=== PATIENT | male | born 1975 | race African-American/Black ===

== ENCOUNTER 2016-09-04 14:40 | Emergency (ER) | payer BC, OTHER ==
[~2016-09-04] VITALS: Ht 182.9 cm; Wt 175.0 kg
[~2016-09-04 14:40] MED LIST: CIPR500T4 PO; HYDR-3533 PO; IBUP-238 PO; IBUP600 PO; LISI-363 PO
[2016-09-04 14:53] VITALS: BP 175/88; PULSE 78; RESP 16; TEMP 98; O2SAT 94
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
[2016-09-04 17:42] LABS: AUTOMATED NEUTROPHIL # 9.1 TH/MM3 (1.8-7.7); BASOPHIL # 0.1 TH/MM3 (0-0.2); BASOPHIL % 0.7 % (0.0-2.0); EOSINOPHIL # 0.3 TH/MM3 (0-0.4); EOSINOPHIL % 1.9 % (0.0-4.0); HEMATOCRIT 37.5 % (39.0-51.0); HEMO FLAGS DIFF FINAL; LYMPH % 23.9 % (9.0-44.0); LYMPHOCYTE # 3.3 TH/MM3 (1.0-4.8); MEAN CELL VOLUME 88.8 FL (80.0-100.0); MEAN CORPUSCULAR HEMOGLOBIN 29.2 PG (27.0-34.0); MEAN CORPUSCULAR HGB CONC 32.9 % (32.0-36.0); MONO % 7.3 % (0.0-8.0); NEUT % 66.2 % (16.0-70.0); PLATELET COUNT 291 TH/MM3 (150-450); RED BLOOD COUNT 4.23 MIL/MM3 (4.50-5.90); RED CELL DISTRIBUTION WIDTH 13.1 % (11.6-17.2); WHITE BLOOD COUNT 13.7 TH/MM3 (4.0-11.0)
[2016-09-04 17:48] LABS: BLOOD, URINE LARGE (NEG); COMMENT (UR) CULT NOT INDICATED; CULTURE IF INDICATED CULT NOT INDICATED; GLUCOSE,URINE NEG (NEG); KETONE, URINE NEG (NEG); MUCUS URINE FEW /lpf (OCC); NITRITE,URINE NEG (NEG); SQUAMOUS EPITHELIAL CELL URINE <1 /hpf (0-5); URINE COLOR YELLOW (YELLW/STRAW)
[2016-09-04 18:04] LABS: ANION GAP 5 MEQ/L (5-15); BICARBONATE 29.3 MEQ/L (21.0-32.0); BLOOD UREA NITROGEN 13 MG/DL (7-18); CHLORIDE 106 MEQ/L (98-107); GLOMERULAR FILTRATION RATE 123 ML/MIN (>89); MAGNESIUM 1.8 MG/DL (1.5-2.5); POTASSIUM 3.3 MEQ/L (3.5-5.1); SODIUM (NA) 140 MEQ/L (136-145)
[2016-09-04 18:06] LABS: ALT (GPT) 21 U/L (12-78)
[2016-09-04 18:16] LABS: ALKALINE PHOSPHATASE 69 U/L (45-117); AST (GOT) 19 U/L (15-37); TOTAL BILIRUBIN ADULT 0.6 MG/DL (0.2-1.0)
== END 2016-09-04 19:01 | disposition home or self-care (01) ==
LOC: NEPD 14:40
DX: R42 Dizziness and giddiness (principal); R31.9 Hematuria, unspecified; R11.0 Nausea; I10 Essential (primary) hypertension; M13.862 Other specified arthritis, left knee; Z87.442 Personal history of urinary calculi; Z88.5 Allergy status to narcotic agent
CPT/HCPCS: 80053; 81001; 83735; 84443; 85025; 99283

== ENCOUNTER 2016-09-09 22:16 | Emergency (ER) | payer OTHER ==
[2016-09-09 22:19] VITALS: BP 191/116; PULSE 104; RESP 16; TEMP 99.3; O2SAT 97
[2016-09-10] MEDS ORDERED: SODIUM CHLORID 0.9% 500 ML INJ 500 ML IV ONE
[2016-09-10 00:13] VITALS: BP 198/111; PULSE 96; RESP 20; O2SAT 96
--- NOTE | 2016-09-10 01:10 | PD ---
HPI Chief Complaint: Complaint Time Seen by Provider: 23:50 Travel History International Travel<30 days: No Contact w/Intl Traveler<30days: No Traveled to known affect area: No History of Present Illness HPI The patient is a 41 year old male who presents to the [facility] emergency department with a history of difficulty urinating that began at approximately 5 PM today. He reports that he feels the need to urinate, however he is not able to. He denies taking any new medications. He denies taking any over-the- counter medications. The patient reports that he has had some difficulty starting his stream of urine which she has discussed with his primary care physician recently. He has a referral appointment that has been scheduled with the urologist for tomorrow. The patient reports having suprapubic abdominal discomfort. Otherwise, on review of systems, the patient denies any recent fevers, cough, congestion, neck pain, chest pain, shortness of breath, vomiting , diarrhea, or neurologic symptoms. PFS Past Medical History Narrative Medical The patient's past medical history is significant for being morbidly obese, hypertension, history of osteomyelitis of the right leg, history of arthritis, history of kidney stones, history of being born with one kidney. 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 Abdominal Surgery: Yes (colon resection with colostomy and reversal) Social History Alcohol Use: No Tobacco Use: No (SMOKED BRIEFLY "BLACK AND MILDS" LATE TEENS) Substance Use: No Allergies-Medications (Allergen,Severity, Reaction): Coded Allergies: Morphine (Verified Allergy, Unknown, UNKNOWN, 09/10/16) Reported Meds & Prescriptions Reported Meds & Active Scripts Active Review of Systems Except as stated in HPI: all other systems reviewed are Neg General / Constitutional: No: Fever Eyes: No: Visual changes HENT: No: Headaches Cardiovascular: No: Chest Pain or Discomfort Respiratory: No: Shortness of Breath Gastrointestinal: Positive: Abdominal Pain, No: Nausea, Vomiting, Diarrhea Genitourinary: Positive: Urgency, Dysuria, Decreased Urinary Output, Hesitancy , Pelvic Pain Musculoskeletal: No: Pain Skin: No Rash Neurologic: No: Weakness Psychiatric: No: Depression Endocrine: No: Polydipsia Hematologic/Lymphatic: No: Easy Bruising Physical Exam Narrative General: The patient is a well-developed well-nourished male in no acute distress. Head and Neck exam: Head is normocephalic atraumatic. Eyes: EOMI, pupils are equal round and reactive to light. Nose: Midline septum with pink mucous membranes Mouth: Dentition unremarkable. Moist mucus membranes. Posterior oropharynx is not erythematous. No tonsillar hypertrophy. Uvula midline. Airway patent. Neck: No palpable lymphadenopathy. No nuchal rigidity. No thyromegaly. Cardiovascular: Regular rate and rhythm without murmurs, gallops, or rubs. Lungs: Clear to auscultation bilaterally. No wheezes, rhonchi, or rales. Abdomen: Soft, with abdominal distention related to central obesity, suprapubic tenderness on palpation, no palpable bladder, no other tenderness on palpation of the other quadrants of the abdomen. No guarding, rebound, or rigidity. Normal bowel sounds are audible. No tenderness on palpation of McBurney's point. Negative Ney sign. Extremities: No clubbing or cyanosis. The patient has 1+ edema bilateral lower extremities. 2+ pulses in all 4 extremities. Back: No costovertebral angle tenderness to palpation. Neurologic Exam: Grossly nonfocal. Skin Exam: No rash noted. Intact skin that is warm and dry. Genital exam: The patient is a uncircumcised male. No genital lesions or rash noted. No scrotal pain or swelling on examination. No palpable testicle masses or tenderness on palpation. No palpable hernia. Data Data Last Documented VS Vital Signs Date Time Temp Pulse Resp B/P Pulse Ox O2 Delivery O2 Flow Rate FiO2 09/10/16 03:49 85 18 134/87 100 Room Air 09/09/16 22:19 99.3 Orders Urinalysis - C+S If Indicated (09/09/16 23:51) Complete Blood Count With Diff (09/09/16 23:52) Basic Metabolic Panel (Bmp) (09/09/16 23:52) Iv Access Insert/Monitor (09/09/16 23:52) Ecg Monitoring (09/09/16 23:52) Oximetry (09/09/16 23:52) Sodium Chlorid 0.9% 500 Ml Inj (Ns 500 M (09/10/16 00:00) Blood Culture (09/10/16 03:30) Lactic Acid Sepsis Protocol (09/10/16 03:30) Ct Abd/Pel W Iv Contrast(Rout) (09/10/16 03:30) Levofloxacin 750 Mg Premix Inj (Levaquin (09/10/16 03:30) Sodium Chlor 0.9% 1000 Ml Inj (Ns 1000 M (09/10/16 03:30) Iohexol 350 Inj (Omnipaque 350 Inj) (09/10/16 04:58) Labs Laboratory Tests Test 09/10/16 09/10/16 00:59 03:53 White Blood Count 15.3 TH/MM3 Red Blood Count 4.39 MIL/MM3 Hemoglobin 13.0 GM/DL Hematocrit 39.0 % Mean Corpuscular Volume 88.7 FL Mean Corpuscular Hemoglobin 29.6 PG Mean Corpuscular Hemoglobin 33.4 % Concent Red Cell Distribution Width 13.0 % Platelet Count 294 TH/MM3 Mean Platelet Volume 8.5 FL Neutrophils (%) (Auto) 68.0 % Lymphocytes (%) (Auto) 20.9 % Monocytes (%) (Auto) 7.0 % Eosinophils (%) (Auto) 2.4 % Basophils (%) (Auto) 1.7 % Neutrophils # (Auto) 10.4 TH/MM3 Lymphocytes # (Auto) 3.2 TH/MM3 Monocytes # (Auto) 1.1 TH/MM3 Eosinophils # (Auto) 0.4 TH/MM3 Basophils # (Auto) 0.3 TH/MM3 CBC Comment AUTO DIFF Differential Total Cells 100 Counted Neutrophils % (Manual) 59 % Band Neutrophils % 1 % Lymphocytes % 28 % Monocytes % 8 % Eosinophils % 2 % Basophils % 1 % Neutrophils # (Manual) 9.3 TH/MM3 Promyelocytes 1 % Differential Comment FINAL DIFF MANUAL Atypical Lymphocytes % Toxic Vacuolation PRESENT Platelet Estimate NORMAL Platelet Morphology Comment NORMAL Red Cell Morphology Comment NORMAL Urine Color YELLOW Urine Turbidity HAZY Urine pH 5.5 Urine Specific [place] 1.025 Urine Protein 30 mg/dL Urine Glucose (UA) NEG mg/dL Urine Ketones NEG mg/dL Urine Occult Blood MOD Urine Nitrite NEG Urine Bilirubin NEG Urine Urobilinogen LESS THAN 2.0 MG/DL Urine Leukocyte Esterase TRACE Urine RBC 60 /hpf Urine WBC 4 /hpf Urine Squamous Epithelial 9 /hpf Cells Urine Bacteria RARE /hpf Urine Mucus FEW /lpf Microscopic Urinalysis Comment CULT NOT INDICATED Sodium Level 145 MEQ/L Potassium Level 3.5 MEQ/L Chloride Level 109 MEQ/L Carbon Dioxide Level 27.4 MEQ/L Anion Gap 9 MEQ/L Blood Urea Nitrogen 16 MG/DL Creatinine 0.95 MG/DL Estimat Glomerular Filtration 105 ML/MIN Rate Random Glucose 101 MG/DL Calcium Level 9.0 MG/DL Lactic Acid Level 1.0 mmol/L MDM Medical Decision Making Medical Screen Exam Complete: Yes Emergency Medical Condition: Yes Medical Record Reviewed: Yes Interpretation(s) Last Impressions Abdomen/Pelvis CT 09/10/16 0330 Signed Impressions: Service Date/Time: Saturday, September 10, 2016 04:52 - CONCLUSION: 1. The left kidney remains unremarkable with no obstruction or renal calculi. 2. Stable postsurgical changes involving the distal colon. 3. Multiple inguinal lymph nodes which appear reactive. Rickey Spain MD Differential Diagnosis Urinary retention, versus prostatitis, versus cystitis, versus pyelonephritis, versus kidney stone, versus renal failure Narrative Course During the course of the patients emergency department visit, the patients history, examination, and differential diagnosis were reviewed with the patient. The patient had IV access obtained and blood work sent for analysis. The patient was placed on a guest experience captain with oximetry and blood pressure monitoring. The patient had a Swartz catheter placed to gravity. The patient only had 10 mL out with catheter placement, therefore the patient does not seem to be retaining urine. The catheter was maintained while IV fluids were administered and kidney function was assessed. The patient was initially provided normal saline 500 mL bolus which was repeated 1 with a 1 L bolus. The patient was given Levaquin 750 IV times one when he urinary tract infection was identified per The patients laboratory studies were reviewed and remarkable for a white count of 15.3, hemoglobin 13, platelets 294 with 10.4 neutrophils, BMP is remarkable for chloride of 109. Lactic acid is 1.0, urinalysis shows moderate occult blood , trace leukocyte esterase, RBC 60, wbc's 4, rare bacteria, this is a catheterized specimen. Radiology studies were reviewed and remarkable for a CT scan of the abdomen and pelvis that shows left kidney remains unremarkable with no obstruction or renal calculi, stable postsurgical changes involving the distal colon, multiple lymph nodes that appear to be reactive on examination in the inguinal area. The patient's symptoms are consistent with a prostatitis. The patient will have his catheter removed. He reports that he has a urology appointment scheduled already for today. Was instructed regarding the importance of follow- up. He will be given a prescription for ciprofloxacin which he was instructed to start in 24 hours. The patient is resting comfortably and feels better, is alert and in no distress. The patients results and examination findings were discussed with the patient. The repeat examination is unremarkable and benign. The history, exam, diagnostic testing, and current condition do not suggest any significant pathology to warrant further testing, continued ED treatment, admission, or surgical evaluation at this point. The vital signs have been stable. The patient does not have uncontrollable pain, intractable vomiting, or other significant symptoms. The patient's condition is stable and appropriate for discharge. The patient will pursue further outpatient evaluation with a primary care physician or other designated or consulting physician as indicated in the discharge instructions. The patient expressed understanding and was agreeable with this plan. Diagnosis Primary Impression: Prostatitis Qualified Code: N41.0 - Acute prostatitis Referrals: Urologist 1 day Patient Instructions: General Instructions, Prostatitis (ED) Med/Other Pt SpecificInfo: Prescription(s) given Scripts Ciprofloxacin (Cipro)500 Mg Juf136 Mg PO BID 10 Days Ref 0 Prov:Amna Locke MD 09/10/16 Disposition: 01 DISCHARGE HOME Condition: Stable Amna Locke MD Sep 10, 2016 01:10
[2016-09-10 01:36] LABS: AUTOMATED NEUTROPHIL # 10.4 TH/MM3 (1.8-7.7); BASOPHIL # 0.3 TH/MM3 (0-0.2); BASOPHIL % 1.7 % (0.0-2.0); EOSINOPHIL # 0.4 TH/MM3 (0-0.4); EOSINOPHIL % 2.4 % (0.0-4.0); LYMPH % 20.9 % (9.0-44.0); LYMPHOCYTE # 3.2 TH/MM3 (1.0-4.8); MEAN CELL VOLUME 88.7 FL (80.0-100.0); MEAN CORPUSCULAR HEMOGLOBIN 29.6 PG (27.0-34.0); MEAN CORPUSCULAR HGB CONC 33.4 % (32.0-36.0); PLATELET COUNT 294 TH/MM3 (150-450); RED BLOOD COUNT 4.39 MIL/MM3 (4.50-5.90); WHITE BLOOD COUNT 15.3 TH/MM3 (4.0-11.0)
[2016-09-10 01:37] LABS: HEMO FLAGS AUTO DIFF
[2016-09-10 01:41] LABS: BACTERIA, URINE RARE /hpf; BLOOD, URINE MOD (NEG); GLUCOSE,URINE NEG (NEG); KETONE, URINE NEG (NEG); MUCUS URINE FEW /lpf (OCC); NITRITE,URINE NEG (NEG); PH, URINE 5.5 (5.0-8.5); SQUAMOUS EPITHELIAL CELL URINE 9 /hpf (0-5); URINE COLOR YELLOW (YELLW/STRAW)
[2016-09-10 01:42] LABS: COMMENT (UR) CULT NOT INDICATED; CULTURE IF INDICATED CULT NOT INDICATED
[2016-09-10 02:07] LABS: BANDS 1 % (0-6); BASOPHILS 1 % (0-2); EOSINOPHILS 2 % (0-4); NEUTROPHIL # MANUAL DIFF 9.3 TH/MM3 (1.8-7.7); POLYS (SEG NEUTROPHILS) 59 % (16-70); PROMYELOCYTES 1 % (0-0); SCAN/DIFF FINAL DIFF MANUAL; WBC DIFF SAMPLE 100
[2016-09-10 02:08] LABS: BICARBONATE 27.4 MEQ/L (21.0-32.0); POTASSIUM 3.5 MEQ/L (3.5-5.1)
[2016-09-10 02:09] LABS: PLATELET ESTIMATE SMEAR NORMAL (NORMAL); PLATELET MORPHOLOGY NORMAL (NORMAL); TOXIC VACUOLATION PRESENT (NONE SEEN)
[2016-09-10] MEDS ORDERED: SODIUM CHLOR 0.9% 1000 ML INJ 1,000 ML IV ONE (03:30)
[2016-09-10] MEDS ORDERED: LEVOFLOXACIN 750 MG PREMIX INJ 150 ML IV ONE (03:30)
[2016-09-10 03:49] VITALS: BP 134/87; PULSE 85; RESP 18; O2SAT 100
[2016-09-10] MEDS ORDERED: IOHEXOL 350 MG/ML 10 ML VIAL (for RAD DIAG) IV ONE (04:58)
--- NOTE | 2016-09-10 05:24 | RADRPT ---
EXAM DATE/TIME: 09/10/2016 04:52 [facility] COMPARISON: CT ABDOMEN & PELVIS W/O CONTRAST, May 06, 2015, 2:23. INDICATIONS : Abdominal pain and dysuria. IV CONTRAST: 100 cc Omnipaque 350 (iohexol) IV ORAL CONTRAST: No oral contrast ingested. RADIATION DOSE: 38.97 CTDIvol (mGy) ; Patient body habitus MEDICAL HISTORY : Hypertension. Renal calculi. Cardiovascular disease SURGICAL HISTORY : Colon resection. ENCOUNTER: Initial ACUITY: 1 day PAIN SCALE: 8/10 LOCATION: All quadrants. TECHNIQUE: Volumetric scanning of the abdomen and pelvis was performed. Using automated exposure control and ad justment of the mA and/or kV according to patient size, radiation dose was kept as low as reasonably achievable to obtain optimal diagnostic quality images. DICOM format image data is available electro nically for review and comparison. FINDINGS: LOWER LUNGS: The visualized lower lungs are clear. LIVER: Homogeneous density without lesion. There is no dilation of the biliary tree. No calcified gallston es. SPLEEN: Normal size without lesion. PANCREAS: Within normal limits. KIDNEYS: The right kidney is again noted to be absent. The left kidney demonstrates no mass or focal abnormali ty. There is no renal calculi or obstruction. ADRENAL GLANDS: Within normal limits. VASCULAR: There is no aortic aneurysm. BOWEL/MESENTERY: There are stable postsurgical changes along the distal colon in the posterior pelvis. The stomach, sm all bowel, and colon demonstrate no acute abnormality. There is no free intraperitoneal air or fluid . ABDOMINAL WALL: Within normal limits. RETROPERITONEUM: There is no lymphadenopathy. BLADDER: No wall thickening or mass. REPRODUCTIVE: Within normal limits. INGUINAL: There is no hernia. There are multiple reactive appearing lymph nodes in the inguinal regions. MUSCULOSKELETAL: Within normal limits for patient age. Degenerative changes are again noted involving the lower facet joints in the lumbar spine. CONCLUSION: 1. The left kidney remains unremarkable with no obstruction or renal calculi. 2. Stable postsurgical changes involving the distal colon. 3. Multiple inguinal lymph nodes which appear reactive. Rickey Spain MD on September 10, 2016 at 5:19 Board Certified Radiologist. This report was verified electronically.
[2016-09-10] MEDS ORDERED: CIPR-9 PO (05:38)
== END 2016-09-10 06:27 | disposition home or self-care (01) ==
LOC: NEPE 22:16
DX: N41.0 Acute prostatitis (principal); I10 Essential (primary) hypertension; E66.01 Morbid (severe) obesity due to excess calories; Z87.39 Personal history of other diseases of the musculoskeletal system and connective tissue; Z87.448 Personal history of other diseases of urinary system
CPT/HCPCS: 74177; 80048; 81001; 83605; 85007; 85027; 87040; 96374; 99285; J1956; J7030; J7040; Q9967

== ENCOUNTER 2016-09-20 20:14 | Emergency (ER) | payer OTHER ==
[~2016-09-20 20:14] MED LIST changes: +CIPR-9 PO; -CIPR500T4 PO; -HYDR-3533 PO; -IBUP-238 PO; -IBUP600 PO; -LISI-363 PO
[2016-09-20 20:18] VITALS: PULSE 106; RESP 20; TEMP 99.2; O2SAT 93
--- NOTE | 2016-09-20 21:28 | PD ---
HPI Chief Complaint: Complaint Time Seen by Provider: 21:20 Travel History International Travel<30 days: No Contact w/Intl Traveler<30days: No Traveled to known affect area: No History of Present Illness HPI This 41-year-old male presents with complaint of blood coming from his penis. He has been seeing a urologist. He had some swelling of his prostate. He had an indwelling Swartz catheter for the past week. It was removed Thursday morning. After the catheter was removed and was some blood which came out. His urine was reevaluated at 3:30 in the afternoon and was clear. Tonight the gentleman was having sex with his fiance and when he ejaculated there was a large amount of blood followed by blood coming from his penis. She applied pressure and was able to stop the blood patient has been able to urinate. 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) Hypertension: Yes Kidney Stones: Yes Musculoskeletal: Yes (OSTEOMYELITIS RIGHT LEG) Past Surgical History Abdominal Surgery: Yes (colon resection with colostomy and reversal) Social History Alcohol Use: No Tobacco Use: No (SMOKED BRIEFLY "BLACK AND MILDS" LATE TEENS) Substance Use: No Allergies-Medications (Allergen,Severity, Reaction): Coded Allergies: Morphine (Verified Allergy, Unknown, UNKNOWN, 09/20/16) Reported Meds & Prescriptions Reported Meds & Active Scripts Active Cipro (Ciprofloxacin HCl) 500 Mg Tab 500 Mg PO BID 10 Days Review of Systems General / Constitutional: No: Fever, Chills Eyes: No: Diploplia HENT: No: Headaches Cardiovascular: No: Chest Pain or Discomfort, Palpitations Respiratory: No: Cough, Shortness of Breath Gastrointestinal: No: Vomiting, Diarrhea Genitourinary: Positive: Hematuria, No: Urgency, Frequency Musculoskeletal: No: Myalgias Skin: No Rash Neurologic: No: Weakness Physical Exam Narrative GENERAL: Well-developed male SKIN: Focused skin assessment warm/dry. HEAD: Atraumatic. Normocephalic. EYES: Pupils equal and round. No scleral icterus. No injection or drainage. ENT: No nasal bleeding or discharge. Mucous membranes pink and moist. NECK: Trachea midline. No JVD. GASTROINTESTINAL: Abdomen soft, non-tender, obese hepatic and splenic margins not palpable. : There is a small amount of blood at the penile tip. The patient is able to void without any problems. There are no other lesions noted MUSCULOSKELETAL: No obvious deformities. No clubbing. No cyanosis. No edema. NEUROLOGICAL: Awake and alert. No obvious cranial nerve deficits. Motor grossly within normal limits. Normal speech. PSYCHIATRIC: Appropriate mood and affect; insight and judgment normal. Data Data Last Documented VS Vital Signs Date Time Temp Pulse Resp B/P Pulse Ox O2 Delivery O2 Flow Rate FiO2 09/20/16 20:18 99.2 106 20 93 MDM Medical Decision Making Medical Screen Exam Complete: Yes Emergency Medical Condition: Yes Medical Record Reviewed: Yes Differential Diagnosis Differential includes prostatitis, hematospermia, hematuria Narrative Course Patient apparently had significant bleeding from his urethra. At this time he is voiding well and I'm reluctant to insert another catheter and that was the source of this original problem. I have recommended he abstain from sexual activity for a few days. Follow-up with his urologist. Return if he should develop urinary retention Diagnosis Primary Impression: Hematuria Additional Instructions: Follow-up with urologist, return if unable to void Disposition: 01 DISCHARGE HOME Condition: Stable Albino Love MD Sep 20, 2016 21:27
== END 2016-09-20 21:54 | disposition home or self-care (01) ==
LOC: PHED 20:14
DX: R31.9 Hematuria, unspecified (principal)
CPT/HCPCS: 99281

== ENCOUNTER 2016-11-13 12:06 | Day surgery (SDC) | payer OTHER ==
[~2016-11-13] VITALS: Ht 185.4 cm; Wt 195.6 kg
[~2016-11-13 12:06] MED LIST changes: +ESMOLOL HCL 100 MG/10 ML VIAL IV ONE; +LABETALOL HCL 100 MG/20 ML VIAL IV ONE; +LIDOCAINE HCL 1% PF 5 ML AMPULE OTHER ONE; +PHENYLEPH/NS 1000 MCG/10 ML SYR IV ONE; +PROPOFOL 200 MG/20 ML AMP IV ONE; +SUCCINYLCHOLINE CHLORIDE 100 MG/5 ML SYRINGE IV PUSH ONE
[2016-11-13] MEDS ORDERED: LACTATED RINGER'S 1000 ML IV PRN (13:00)
[2016-11-13] MEDS ORDERED: CHLORHEXIDINE GLUCONATE 2 % 1 PACK (2 CLOTHS) TOPICAL PRN (13:00)
[2016-11-13] MEDS ORDERED: INSULIN HUMAN REGULAR 1,000 UNITS/10 ML VIAL SQ PRN (13:00)
[2016-11-13] MEDS ORDERED: POVIDONE IODINE 5% (ANTISEPSIS KIT) 4 APPLICATIONS EACH NARE PRN (13:00)
[2016-11-13] MEDS ORDERED: SODIUM CHLORID 0.9% 500 ML IV PRN (13:00)
[2016-11-13] MEDS ORDERED: METOPROLOL TARTRATE 25 MG TAB PO PRN (13:00)
[2016-11-13] MEDS ORDERED: ceFAZolin 3,000 MG/NS 100 ML (if >120 kg) IV SCH ×2 (13:00)
[2016-11-13] MEDS ORDERED: MACR100C2 PO (13:32)
[2016-11-13] MEDS ORDERED: ceFAZolin INJ 1,000 MG VIAL ONE (14:24)
[2016-11-13 15:32] LABS: PROTHROMBIN TIME - PATIENT 11.3 SEC (9.8-11.6)
[2016-11-13] MEDS ORDERED: BUPIVACAINE HCL PF 0.25% 30 ML VIAL ONE (16:06)
--- NOTE | 2016-11-13 18:19 | RADRPT ---
EXAM DATE/TIME: 11/13/2016 17:31 [place] COMPARISON: No previous studies available for comparison. INDICATIONS : Central line placement. MEDICAL HISTORY : Hypertension. Renal calculi. Cardiovascular disease. SURGICAL HISTORY : Colon resection. ENCOUNTER: Subsequent ACUITY: 1 day PAIN SCORE: 0/10 LOCATION: chest FINDINGS: Left subclavian central line is present with tip extending to the midline innominate vein region. The re is no evidence of pneumothorax or other complication of placement. Lungs are focally clear. No sig nificant effusion is suspected. Heart size is upper limits of normal with satisfactory mediastinal co ntours. CONCLUSION: Central line tip likely in the left brachiocephalic vein. No pneumothorax. Neville Thakkar MD on November 13, 2016 at 18:16 Board Certified Radiologist. This report was verified electronically.
[2016-11-13 19:00] VITALS: BP 159/77; PULSE 75; RESP 20; TEMP 98.1; O2SAT 96
--- NOTE | 2016-11-14 06:16 | MP ---
cc: JALEEL ELY MD DATE OF OPERATION 11/13/2016 PREOPERATIVE DIAGNOSIS Left hydrocele. POSTOPERATIVE DIAGNOSIS Left hydrocele. PROCEDURE PERFORMED Excision of left hydrocele. SURGEON MD [facility] ANESTHESIA General. COMPLICATIONS None. ANTIBIOTICS Ancef 3 units IV. DRAINS None. SPECIMEN None. BLOOD LOSS Minimal. DISPOSITION Stable to Recovery. INDICATIONS The patient is a 41-year-old male with intermittent scrotal swelling. The patient had scrotal ultrasound done which showed a large complex hydrocele of his left testicle. The treatment options were discussed including watchful waiting versus aspiration versus excisional hydrocele sac. He elected to proceed with excision of hydrocele sac. DETAILS OF PROCEDURE The patient was properly identified and brought back to the operating room, laid supine on the operating table. Proper time-out was performed under the direction of Anesthesiology. The patient was then induced under general aesthetic. Preoperative antibiotics in the form of Ancef 3 grams Ancef IV was given within 1 hour of the start of the procedure. The patient was then prepped and draped in normal sterile surgical fashion. A 5 cm transverse scrotal incision was made with Bovie electrocautery in his left olivia-scrotum. The sac was carefully dissected out and delivered out of the scrotum. During delivery the sac did rupture and approximately 400 cc of serous-colored fluid was expelled. At this time the excess sac was then removed. The testicle was then bottlenecked. Excess sac was removed. Hemostasis was achieved. There was no evidence of any bleeding. The testicle was then placed back in the left hemiscrotum in proper orientation. The incision was closed in two layers using Vicryl and chromic. 0.25% Marcaine plain at the end was then injected. This concluded the procedure. The patient was extubated and sent to Recovery in stable addition. He will be discharged home pain meds and antibiotics and will follow up as an outpatient. Jaleel Ely MD EMF/SSB /4:47 PM /6:00 AM
== END 2016-11-13 19:00 | disposition home or self-care (01) ==
LOC: HSDC 12:06
PROVIDERS: ATTEND Urology
DX: N43.3 Hydrocele, unspecified (principal); E66.9 Obesity, unspecified; Z68.43 Body mass index [BMI] 50.0-59.9, adult
CPT/HCPCS: 00920; 55040; 71010; 85610; J0330; J0690; J2370; J3010

== ENCOUNTER 2017-07-01 13:54 | Emergency (ER) | payer OTHER ==
[~2017-07-01] VITALS: Ht 182.9 cm; Wt 180.0 kg
[~2017-07-01 13:54] MED LIST changes: -CIPR-9 PO; -ESMOLOL HCL 100 MG/10 ML VIAL IV ONE; -LABETALOL HCL 100 MG/20 ML VIAL IV ONE; -LIDOCAINE HCL 1% PF 5 ML AMPULE OTHER ONE; +MACR100C2 PO; -PHENYLEPH/NS 1000 MCG/10 ML SYR IV ONE; -PROPOFOL 200 MG/20 ML AMP IV ONE; -SUCCINYLCHOLINE CHLORIDE 100 MG/5 ML SYRINGE IV PUSH ONE
[2017-07-01 14:06] VITALS: BP 199/101; PULSE 94; RESP 16; TEMP 98.8; O2SAT 97
[2017-07-01] MEDS ORDERED: METO25TA3 PO (14:46)
[2017-07-01] MEDS ORDERED: TAMS5CAP PO (14:46)
--- NOTE | 2017-07-01 14:53 | PD ---
HPI Chief Complaint: Complaint Time Seen by Provider: 14:44 Travel History International Travel<30 days: No Contact w/Intl Traveler<30days: No Traveled to known affect area: No History of Present Illness HPI This 41-year-old male is complaining of urgency and frequency of urination. He feels like he has to pee all the time. He has to be been seeing a urologist that he had a prostate issue. He has been on Flomax. He did have a UTI with subsequent sepsis. 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) Hepatitis: No Hiatal Hernia: No Hypertension: Yes Immune Disorder: No Kidney Stones: Yes Medical other: Yes (hx of kidney infections, hx of diffuculty urinating) Musculoskeletal: No Neurologic: No Psychiatric: No Reproductive: No Respiratory: No Thyroid Disease: No Tetanus Vaccination: Unknown Influenza Vaccination: No Past Surgical History Abdominal Surgery: Yes (as a baby uncertain of what was done) AICD: No Cardiac Surgery: No Ear Surgery: No Endocrine Surgery: No Eye Surgery: No Genitourinary Surgery: No Gynecologic Surgery: No Joint Replacement: No Oral Surgery: No Pacemaker: No Thoracic Surgery: No Other Surgery: Yes (left lower leg r/t injury, right wrist r/t injury) Social History Alcohol Use: No Tobacco Use: No (SMOKED BRIEFLY "BLACK AND MILDS" LATE TEENS) Substance Use: No Allergies-Medications (Allergen,Severity, Reaction): Coded Allergies: morphine (Unverified Allergy, Unknown, UNKNOWN, 07/01/17) Reported Meds & Prescriptions Reported Meds & Active Scripts Active Reported Metoprolol Tartrate Unknown Strength Tab Unknown Dose PO DAILY Flomax (Tamsulosin HCl) 0.4 Mg Cap 0.4 Mg PO BID Review of Systems General / Constitutional: No: Fever, Chills Eyes: No: Diploplia, Blurred Vision HENT: No: Headaches, Vertigo Cardiovascular: No: Chest Pain or Discomfort, Palpitations Respiratory: No: Cough Gastrointestinal: No: Nausea Genitourinary: Positive: Frequency, Dysuria Musculoskeletal: No: Myalgias Skin: No Rash, No Itching Neurologic: No: Weakness Psychiatric: No: Anxiety Endocrine: No: Heat Intolerance, Cold Intolerance Hematologic/Lymphatic: No: Easy Bruising Physical Exam Narrative GENERAL: Developed male SKIN: Focused skin assessment warm/dry. HEAD: Atraumatic. Normocephalic. EYES: Pupils equal and round. No scleral icterus. No injection or drainage. ENT: No nasal bleeding or discharge. Mucous membranes pink and moist. NECK: Trachea midline. No JVD. CARDIOVASCULAR: Regular rate and rhythm. No murmur appreciated. RESPIRATORY: No accessory muscle use. Clear to auscultation. Breath sounds equal bilaterally. GASTROINTESTINAL: Abdomen soft, non-tender, nondistended. Hepatic and splenic margins not palpable. MUSCULOSKELETAL: No obvious deformities. No clubbing. No cyanosis. No edema. NEUROLOGICAL: Awake and alert. No obvious cranial nerve deficits. Motor grossly within normal limits. Normal speech. PSYCHIATRIC: Appropriate mood and affect; insight and judgment normal. Data Data Last Documented VS Vital Signs Date Time Temp Pulse Resp B/P (MAP) Pulse Ox O2 Delivery O2 Flow Rate FiO2 07/01/17 14:40 16 07/01/17 14:06 98.8 94 199/101 (133) 97 Orders Orders Complete Blood Count With Diff (07/01/17 14:49) Basic Metabolic Panel (Bmp) (07/01/17 14:49) Urinalysis - C+S If Indicated (07/01/17 14:49) Bladder Scan PRN (07/01/17 14:49) Urine Culture (07/01/17 15:35) Ciprofloxacin (Cipro) (07/01/17 16:00) Labs Laboratory Tests Test 07/01/17 15:35 Urine Collection Type CLEAN CATCH Urine Color YELLOW Urine Turbidity CLEAR Urine pH 6.0 Urine Specific [place] LESS/EQUAL 1.005 Urine Protein TRACE mg/dL Urine Glucose (UA) NEG mg/dL Urine Ketones NEG mg/dL Urine Occult Blood SMALL Urine Nitrite NEG Urine Bilirubin NEG Urine Urobilinogen 0.2 MG/DL Urine Leukocyte Esterase SMALL Urine RBC 10-14 /hpf Urine WBC 9-14 /hpf Urine Squamous Epithelial Cells > 8 /hpf Urine Amorphous Sediment MOD Microscopic Urinalysis Comment CULTURE INDICATED Urine Collection Time 1535 MDM Medical Decision Making Medical Screen Exam Complete: Yes Emergency Medical Condition: Yes Medical Record Reviewed: Yes Differential Diagnosis Differential includes urinary obstruction, UTI, prostatitis Narrative Course Urine does show white cells and I believe the patient has prostatitis. He will be placed on Cipro Diagnosis Primary Impression: Prostatitis Scripts Ciprofloxacin (Ciprofloxacin) 500 Mg Tab 500 MG PO BID for Infection for 14 Days, #28 TAB 0 Refills Prov: Albino Love MD 07/01/17 Disposition: 01 DISCHARGE HOME Condition: Stable Albino Love MD July 01, 2017 14:53
[2017-07-01 15:38] LABS: BILIRUBIN, URINE NEG (NEG); BLOOD, URINE SMALL (NEG); GLUCOSE,URINE NEG (NEG); KETONE, URINE NEG (NEG); NITRITE,URINE NEG (NEG); URINE COLOR YELLOW (YELLW/STRAW); URINE LEUKOCYTE ESTERASE SMALL (NEG)
[2017-07-01 15:43] LABS: AMORPHOUS SEDIMENT, URINE MOD; SQUAMOUS EPITHELIAL CELL URINE > 8 /hpf (0-5)
[2017-07-01] MEDS ORDERED: CIPR500T2 PO (15:58)
[2017-07-01] MEDS ORDERED: CIPROFLOXACIN 500 MG TAB PO ONE (16:00)
== END 2017-07-01 16:39 | disposition home or self-care (01) ==
LOC: PHED 13:54
DX: N41.9 Inflammatory disease of prostate, unspecified (principal); R82.99 Other abnormal findings in urine; I10 Essential (primary) hypertension; Z87.442 Personal history of urinary calculi; Z88.5 Allergy status to narcotic agent; Z79.899 Other long term (current) drug therapy
CPT/HCPCS: 51798; 81001; 87086; 99283